=== PATIENT | female | born 1995 | race Caucasian/White ===

== ENCOUNTER 2022-04-22 11:34 | Outpatient (CLI) | payer MEDICAID ==
[~2022-04-22] VITALS: Ht 149.9 cm; Wt 64.1 kg
[2022-04-22 12:30] VITALS: BP 102/63; PULSE 77; TEMP 97.8
[2022-04-22] MEDS ORDERED: IRON TABLETS325 MG (12:37)
[2022-04-22] MEDS ORDERED: PRENATAL (12:37)
[2022-04-22 13:00] VITALS: BP 106/56; PULSE 70
[2022-04-22 13:30] VITALS: BP 93/55; PULSE 65
[2022-04-22 14:00] VITALS: BP 100/51; PULSE 67
[2022-04-22 14:29] LABS: SQUAMOUS EPITHELIAL 0-2 /hpf (0-10); URINE BACTERIA None Seen /hpf (NONE SEEN); URINE RBC 0-2 /hpf (0-2); URINE WBC 0-2 /hpf (0-2)
[2022-04-22 14:30] VITALS: BP 95/48; PULSE 64
[2022-04-22 14:32] LABS: PH 7.5 (5.0-8.5); URINE APPEARANCE Clear (CLEAR/HAZY); URINE BLOOD TRACE-LYSED (NEGATIVE); URINE COLOR Yellow (YELLOW); URINE GLUCOSE Negative (NEGATIVE); URINE KETONE Negative (NEGATIVE); URINE NITRATE Negative (NEGATIVE); URINE PROTEIN(semi-quant) Negative (NEGATIVE); URINE UROBILINOGEN 0.2 E.U/dL (0.2-1.0)
[2022-04-22 14:33] LABS: COLLECTION METHOD CLEAN CATCH
[2022-04-22 15:00] VITALS: BP 94/50; PULSE 69
--- NOTE | 2022-04-22 15:20 | NUR ---
1152-PT ARRIVED TO L&D C/O LOWER ABDOMINAL PAIN AND VAGINAL BLEEDING STARTING AT 0000 ON 04/22. PT DENIES LEAKING OF FLUID, DECREASED FM, AND CONTRACTIONS. PT PLACED IN ROOM 6 FOR FURTHER EVALUATION.
--- NOTE | 2022-04-22 15:23 | NUR ---
1503-PT LEFT L&D IN STABLE CONDITION WITH NO COMPLAINTS. LABOR PRECAUTIONS AND KICK COUNTS EXPLAINED TO PT. PT VERBALIZED UNDERSTANDING. PT TO FOLLOW UP AT CLINIC ON 04/23/22. PT AGREES AND VERBALIZED UNDERSTANDING.
== END 2022-04-22 15:05 | disposition home or self-care (01) ==
LOC: LDRO 11:34
PROVIDERS: Obstetrics & Gynecology
DX: O46.93 Antepartum hemorrhage, unspecified, third trimester (principal); Z3A.37 37 weeks gestation of pregnancy
CPT/HCPCS: J7120

== ENCOUNTER 2022-05-05 20:46 | Outpatient (CLI) | payer MEDICAID ==
[~2022-05-05] VITALS: Wt 66.8 kg
[~2022-05-05 20:46] MED LIST: IRON TABLETS325 MG; PRENATAL
[2022-05-05 21:10] VITALS: BP 115/60; PULSE 72; TEMP 98.1
--- NOTE | 2022-05-05 21:10 | NUR ---
2109 [id number] 39 WEEKS TO LR3 WITH C/O SROM AT HOME AT 1830. EFM ON. CONTRACTIONS NOTED EVERY 5-6 MINUTES BUT NOT ALL CONTRACTIONS FELT BY PT. ADM ASSESSMENT COMPLETED. PT IS TO HAVE REPEAT C/SECT ON FRIDAY. FIRST BABY VAG DELIVERY. SECOND BABY C/S FOR PLACENTA PREVIA. SVE /BALLOTABLE. SAME SVE LAST VISIT TO OFFICE. NEG AMNIOTRACE. NO FLUID NOTED AND BOW FELT ON SVE. PT COMFORTABLE WITH NO COMPLAINTS AT THIS TIME.
--- NOTE | 2022-05-05 22:10 | NUR ---
2210 SVE WITH NO CERVICAL CHANGE AND NEG AMNIOTRACE. NO FLUID NOTED AND BOW FELT ON SVE. CONTRACTIONS MORE FREQUENT. PT STATES LAST TWO HAVE BEEN MORE UNCOMFORTABLE. BETWEEN 2149 AND 2199 COTNRACTIONS NOTED EVERY MINUTED LASTING 50 SECONDS. PT STATES DID NOT FEEL ANY OF THOSE CONTRACTIONS. 221 DR BOWMAN NOTIFIED AND ORDER TO DC RECEIVED. PT UP TO BR TO GET DRESSED. 2220 DR BOWMAN CALLS BACK AND WOULD LIKE PT TO STAY ONE MORE HOUR AND RECIEVE A LITER OF IV FLUIDS. PT INSTRUCTED OF THIS AND STATES SHE WANTS TO GO HOME NOW AND FEELS COMFORTABLE DOING SO. REFUSED IV FLUIDS AND STAYING LONGER. DR BOWMAN NOTIFIED AND STATES PT MAY GO HOME BUT TO COME BACK IF CONTRACTIONS BECOME MORE REGULAR AND STRONGER OR IF SROM. 2230 HOME WITH INSTRUCTIONS.
[2022-05-05 22:15] VITALS: BP 103/58; PULSE 62
== END 2022-05-05 22:30 | disposition home or self-care (01) ==
LOC: LDRO 20:46
DX: O42.92 Full-term premature rupture of membranes, unspecified as to length of time between rupture and onset of labor (principal); Z3A.39 39 weeks gestation of pregnancy

== ENCOUNTER 2022-05-06 05:57 | Inpatient (IN) | payer MEDICAID ==
[~2022-05-06] VITALS: Ht 149.9 cm; Wt 66.8 kg
[2022-05-06] VITALS (10 sets, daily range): BP systolic 103–132; BP diastolic 57–72; PULSE 57–83; TEMP 97.6–98.2
--- NOTE | 2022-05-06 06:22 | NUR ---
Pt arrives to floor via wheelchair at 0600, states her water broke in the car on the way here and that contractions continue as they have since midnight. Pt in obvious discomfort, pool of pink tinged fluid noted on pad of wheelchair when pt stood up. Pt changes into gown. Consent obtained for SVE, SVE /-2, possible mec fluid noted on glove. EFM explained and placed. Report given to JUAN DIEGO Sandy.
[2022-05-06 07:16] LABS: BASO % 0.2 % (0.0-2.0); EOS % 0.3 % (0.0-4.0); GRAN # 9.3 K/mm3 (1.4-6.5); GRAN % 81.8 % (42.2-75.2); HEMOGLOBIN 11.2 g/dl (12.5-16.0); LYMPH # 1.5 K/mm3 (1.2-3.4); LYMPH % 13.1 % (20.0-51.0); MEAN CELL VOLUME 95 fl (80.0-100.0); MEAN CORPUSCULAR HEMOGLOBIN 32 pg (27-31); MEAN CORPUSCULAR HGB CONC 34 g/dl (33.0-37.0); MEAN PLATELET VOLUME 10.6 fl (7.4-10.4); MONO # 0.5 K/mm3 (0.1-0.6); PLATELET COUNT 186 K/mm3 (130-400); RED BLOOD COUNT 3.46 M/mm3 (4.10-5.30); REDCELL DISTRIBUTION WIDTH-CV 13.3 % (11.5-14.5)
[2022-05-06 07:17] LABS: HEMATOCRIT 32.7 % (37.0-47.0)
--- NOTE | 2022-05-06 09:43 | NUR ---
0640-SVE 0 PER Damir BOWERS RN. PT HAS URGE TO PUSH WITH CONTRACTIONS. RN CONTINOUSLY AT BEDSIDE MONITORING FHR. 0651- HEAD . DR. DENNIS WHITTEN AT BEDSIDE. 0652- OF INFANT HEAD AND BODY BY DR. DENNIS WHITTEN. 0653-DR. WEIR AT BEDSIDE. RECOUNT WITH DR. WEIR AND RN CORRECT. PERINIUM INTACT. BILATERAL LABIAL LACERATIONS BEING REPAIRED BY DR. WEIR. LIDOCAINE ADMINISTED BY DR. WEIR. 0704- OF PLACENTA. PITOCIN BOLUS INITIATED. PERICARE COMPLETED. CARE TO CONTINUE.
[2022-05-07 01:30] VITALS: BP 95/51; PULSE 65; TEMP 98.1
[2022-05-07 04:00] VITALS: BP 99/52; PULSE 63; TEMP 98
[2022-05-07 07:21] VITALS: BP 110/70; PULSE 69; TEMP 97.9
--- NOTE | 2022-05-07 09:25 | NUR ---
Initial visit; Patient thanked Table And Desk Finisher for offering congratulations and God's blessings for the of her daughter. Table And Desk Finisher thanked patient for choosing [facility].
--- NOTE | 2022-05-07 13:00 | NUR ---
1300 - DISCHARGE INSTRUCTIONS REVIEWED WITH PATIENT AND SPOUSE. QUESTIONS ANSWERED. 1315 - PATIENT AMBULATORY OFF UNIT ACCOMPANIED BY SPOUSE AND THIS RN.
== END 2022-05-07 13:15 | disposition home or self-care (01) | DRG 807 ==
LOC: LDRO 05:57 → LDR 06:47 → OB 09:48
PROVIDERS: Student in an Organized Health Care Education/Training Program; ADMIT Obstetrics & Gynecology
PROC: 10E0XZZ Delivery of Products of Conception, External Approach (ICD-10-PCS; principal; 2022-05-06)
PROC: 0UQMXZZ Repair Vulva, External Approach (ICD-10-PCS; 2022-05-06)
PROC: 0HQ9XZZ Repair Perineum Skin, External Approach (ICD-10-PCS; 2022-05-06)
DX: O99.02 Anemia complicating childbirth (principal); Z37.0 Single live birth; D64.9 Anemia, unspecified; Z3A.39 39 weeks gestation of pregnancy; Z86.16 Personal history of COVID-19; O77.0 Labor and delivery complicated by meconium in amniotic fluid; O70.0 First degree perineal laceration during delivery
CPT/HCPCS: J2590; J7120

== ENCOUNTER 2024-03-15 00:02 | Inpatient (IN) | payer MEDICAID ==
[~2024-03-15] VITALS: Ht 149.9 cm; Wt 69.1 kg
[2024-03-15] VITALS (31 sets, daily range): BP systolic 97–132; BP diastolic 52–72; PULSE 58–86; TEMP 97.6–99
[2024-03-15] MEDS ORDERED: LR 1,000 ML IV SCH (06:15)
--- NOTE | 2024-03-15 06:25 | NUR ---
PATIENT AMBULATES ON TO UNIT AND TO LABOR ROOM. PATIENT DENIES LEAKING OF FLUID OR BLEEDING. PATIENT REPORTS IRREGULAR CONTRACTIONS. PATIENT REPORTS NORMAL MOVEMENT. EFM AND TOCO INITIATIED. SPO2 MONITOR INITIATED.
--- NOTE | 2024-03-15 06:25 | NUR ---
PATIENT AMBULATES ON TO UNIT AND TO LABOR ROOM. PATIENT DENIES LEAKING OF FLUID OR BLEEDING. PATIENT REPORTS IRREGULAR CONTRACTIONS. PATIENT REPOPRTS NORMAL MOVEMENT.
[2024-03-15 06:55] LABS: BASO % 0.1 % (0.0-2.0); EOS % 0.5 % (0.0-4.0); GRAN # 6.4 K/mm3 (1.4-6.5); LYMPH # 1.7 K/mm3 (1.2-3.4); LYMPH % 19.3 % (20.0-51.0); MEAN CELL VOLUME 94 fl (80.0-100.0); MEAN CORPUSCULAR HGB CONC 32 g/dl (33.0-37.0); MEAN PLATELET VOLUME 11.1 fl (7.4-10.4); MONO # 0.4 K/mm3 (0.1-0.6); MONO % 4.4 % (1.7-9.3); PLATELET COUNT 176 K/mm3 (130-400); RED BLOOD COUNT 3.03 M/mm3 (4.10-5.30); REDCELL DISTRIBUTION WIDTH-CV 13.7 % (11.5-14.5)
[2024-03-15 07:01] LABS: HEMATOCRIT 28.5 % (37.0-47.0); HEMOGLOBIN 9.1 g/dl (12.5-16.0); MEAN CORPUSCULAR HEMOGLOBIN 30 pg (27-31)
[2024-03-15] MEDS ORDERED: LR & Oxytocin 500 ML IV SCH (08:30)
--- NOTE | 2024-03-15 08:35 | NUR ---
DR. WEIR AT BEDSIDE. FHR TRACING REVIEWED. PLAN OF CARE UPDATED. KIRAN @ 0835 1. MADGALENA @ 0837.
--- NOTE | 2024-03-15 10:44 | NUR ---
PATIENT NOTIFIED THAT WOULD LIKE ANESTHESIA TO COME AND PLACE AND EPIDURAL SITE IN CASE OF EMERGENCY WITH HER BEING A TOLAC/. PATIENT EDUCATED THAT WE WOULD JUST NOT START THE PUMP SINCE SHE IS STILL WISHING TO NOT GET AN EPIDURAL. PATIENT IS IN AGREEANCE WITH THIS.
--- NOTE | 2024-03-15 11:07 | NUR ---
JUDD AMOR AT BEDSIDE. PLAN TO PLACE AN EPIDURAL TO HAVE AN AVAILABLE SITE DICUSSED WITH PATIENT. PATIENT REQUESTING TO HAVE PUMP AND MEDICINE STARTED WELL AT THIS TIME. PROCEDURE EXPLAINED AND CONSENT OBTAINED. SPO2 MONITOR INITIATIED. DIFFICULTY TRACING CONTRACTIONS DUE TO MATERNAL POSITION. 1114 SINGLE SHOT. 1120 PATIENT ASSISTED BACK TO LEFT LATERAL POSITION IN BED.
[2024-03-15] MEDS ORDERED: Ondansetron 4 MG/2 ML VIAL IV PRN (11:15)
[2024-03-15] MEDS ORDERED: diphenhydrAMINE 50 MG/ML 1 ML VIAL IV PRN (11:15)
[2024-03-15] MEDS ORDERED: ePHEDrine 50 MG/10 ML VIAL IV PRN (11:15)
[2024-03-15] MEDS ORDERED: diphenhydrAMINE 25 MG CAP PO PRN (11:15)
[2024-03-15] MEDS ORDERED: Naloxone 0.4 MG/ML VIAL IV PRN ×2 (11:15→13:15)
[2024-03-15] MEDS ORDERED: ROPivacaine PF 0.2% 200 ML IV ONE (11:22)
--- NOTE | 2024-03-15 12:47 | NUR ---
1247 AT BEDSIDE. SVE DETERMINED TO BE AN ANTERIOR LIP/100/-1. 1250 PATIENT SETUP FOR DELIVERY AND MCKAY REMOVED. 1255 PROVIDER DETERMINES PATIENT IS COMPLETE. PUSHING EFFORTS INITIATED. 1258 OF VIABLE MALE . PLACED ON MOTHER'S ABDOMEN. CARE OF GIVEN TO NURSERY RN. PITOCIN STOPPED 1303 OF PLACENTA. REPAIR OF PERIURETHRAL LACERATION BY . PITOCIN BOLUS INITIATED PER POLICY AND PROTOCOL. FUNDUS FIRM AND BLEEDING WNL.
[2024-03-15] MEDS ORDERED: Ibuprofen 600 MG TAB PO SCH (13:15)
[2024-03-15] MEDS ORDERED: Mag/Al Hydrox/Simeth Susp 30 ML CUP PO PRN (13:15)
[2024-03-15] MEDS ORDERED: Magnes Hydrox (MOM) 80 MG/ML 30 ML CUP PO PRN (13:15)
[2024-03-15] MEDS ORDERED: Loratadine 10 MG TAB PO PRN (13:15)
[2024-03-15] MEDS ORDERED: Measles/Mumps/Rubella Virus Vaccine Live w Diluent 0.5 ML VIAL SQ SCH (13:15)
[2024-03-15] MEDS ORDERED: Witch Hazel 50% Pads Bulk TUB TP PRN (13:15)
[2024-03-15] MEDS ORDERED: Acetaminophen 500 MG TAB PO SCH (13:15)
[2024-03-15] MEDS ORDERED: oxyCODONE 5 MG TAB PO PRN (13:15)
[2024-03-15] MEDS ORDERED: Phenylephrine/Mineral Oil/Petrolatum 57 GM TUBE RC PRN (13:15)
[2024-03-15] MEDS ORDERED: GLUCOPHAGE1000 MG PO (14:56)
--- NOTE | 2024-03-15 15:53 | NUR ---
EPIDURAL REMOVED @ 1558 1600 PATIENT STANDBY ASSIST X 1 RN TO BATHROOM. PATIENT ABLE TO VOID. PERICARE COMPLETED. 1605 PATIENT ASSISTED TO WALK INDEPENDENTLY TO ROOM. PATIENT ORIENTED TO ROOM.
[2024-03-15] MEDS ORDERED: Sennosides/Docusate 8.6-50 MG TAB PO SCH (17:00)
[2024-03-15] MEDS ORDERED: traZODone 50 MG TAB PO PRN (21:00)
[2024-03-16] VITALS: BP 112/65; PULSE 67; TEMP 98.4
[2024-03-16 04:00] VITALS: BP 104/59; PULSE 57; TEMP 98
[2024-03-16 07:30] VITALS: BP 118/65; PULSE 68; TEMP 99.1
[2024-03-16] MEDS ORDERED: IBU600 MG PO (08:11)
--- NOTE | 2024-03-16 12:48 | NUR ---
Data: Patient accepted spiritual care visit offered during Rate Analyst rounds. Assessment: Appreciative for new baby. Plan of Care: Rate Analyst provided blessing for Baby Blaze and prayer. Chaplains will remain available as needed/requested while Patient is admitted to this hospital.
--- NOTE | 2024-03-16 13:00 | NUR ---
PT REQUESTS BORDER STATUS DISCHARGE AT THIS TIME. DISCUSSED WHAT THIS MEANS. PT AGREES.
== END 2024-03-16 15:00 | disposition home or self-care (01) | DRG 807 ==
LOC: OB 00:02 → LDR 06:10 → OB 16:00
PROVIDERS: ADMIT Obstetrics & Gynecology
PROC: 10E0XZZ Delivery of Products of Conception, External Approach (ICD-10-PCS; principal; 2024-03-15)
PROC: 0UQMXZZ Repair Vulva, External Approach (ICD-10-PCS; 2024-03-15)
PROC: 3E033VJ Introduction of Other Hormone into Peripheral Vein, Percutaneous Approach (ICD-10-PCS; 2024-03-15)
PROC: 10907ZC Drainage of Amniotic Fluid, Therapeutic from Products of Conception, Via Natural or Artificial Opening (ICD-10-PCS; 2024-03-15)
DX: O34.211 Maternal care for low transverse scar from previous cesarean delivery (principal); Z37.0 Single live birth; O24.425 Gestational diabetes mellitus in childbirth, controlled by oral hypoglycemic drugs; Z3A.38 38 weeks gestation of pregnancy; O99.02 Anemia complicating childbirth; D64.9 Anemia, unspecified; O99.344 Other mental disorders complicating childbirth; F41.9 Anxiety disorder, unspecified; O71.82 Other specified trauma to perineum and vulva
CPT/HCPCS: J2590; J2795; J7120